=== PATIENT | female | born 1945 | race Caucasian/White ===

== ENCOUNTER 2018-08-14 22:24 | Inpatient (IN) ==
[2018-08-14] MEDS ORDERED: MoRPHine SULFATE 2 MG/ML CARP IV STA (23:21)
[2018-08-14] MEDS ORDERED: ONDANSETRON INJ 2 MG/ML 2 ML VIAL IV STA (23:21)
[2018-08-14] MEDS ORDERED: MoRPHine SULFATE 4 MG/ML 1 ML CARP\\VIAL IV STA (23:23)
[2018-08-15] MEDS ORDERED: SODIUM CHLORIDE 0.9% 500 ML IV ONE (00:05)
[2018-08-15] MEDS ORDERED: fentaNYL citrate 100 MCG/2 ML VIAL IV ONE (00:05)
[2018-08-15] MEDS ORDERED: MoRPHine SULFATE 2 MG/ML CARP IV STA (02:07)
--- NOTE | 2018-08-15 05:48 | History & Physical Report ---
Date of Service August 15, 2018 Assessment & Plan (1) Cervical radiculopathy: 73-year-old female was admitted on 15 Aug 2018 for neck pain. Cervical radiculopathy, spinal canal stenosis: Patient notes history of left- sided neck pain for roughly 1-3 weeks. Denies previous history of the same, k nown trauma, or inciting factor. She says her symptoms resolved after 5-day prednisone burst but then returned on day prior to admit. She denies overt chest pain as well as SOB. EKG was normal sinus rhythm, rate 73, with flattened T waves in lateral leads. Troponin is negative. There is some mild weakness in the ulnar distribution but sensation seems equal and intact bilaterally. - On prior ED visit, x-ray of the left shoulder was unremarkable. CT of the cervical spine showed multilevel degenerative disc disease and facet arthrosis. - In ED, patient received 1 L normal saline bolus, Zofran, and morphine followed by fentanyl which brought pain from 9/10 to 6/10. On this visit, MRI of the C- spine (overnight radiology read) noted at C4-5 there is a broad-based right paracentral disc protrusion with C5 nerve root mass-effect, moderate cord compression, and severe spinal canal stenosis. No cord signal abnormality. - Will admit for pain control. Continue morphine and zofran. Consult orthopedics for their evaluation. Ongoing medical issues: - Small bowel internal hernia: As seen on a CT scan February 2018. - She denies any ongoing medical history. Code status: Full code. Diet: NPO for now. DVT prophy: SCDs. Deferred chemical prophylaxis in case of need for surgical procedure. PT/OT: Ordered. Disbo: Admit to [facility]. (2) Cervical stenosis of spinal canal: History of Present Illness Primary Care Provider: NO PCP 73-year-old female requests evaluation for the return of her neck pain that radiates into her left arm and upper chest. -Patient says last week she began to experience some left neck and shoulder pain. She was seen in the emergency department on 26Apr for (per the notes) left shoulder pain that had persisted for 2 to 3 weeks. She had an x-ray that was unremarkable and a CT scan that showed multilevel degenerative disc disease. She was sent home on prednisone 50 mg daily for 5 days. She says over the next couple of days her pain resolved. -Patient says then yesterday (06May, day prior to admit) she redeveloped a new intense, 9/10 pain scale, left posterior neck pain radiating into her upper left arm + posterior shoulder + less so upper chest. She tried taking some Motrin and Tylenol with minimal relief, so she returns for further evaluation. - She does not recall any particular injury or inciting factor. She denies any previous history of the same. She denies any other radicular symptoms elsewhere. She says previously she has had some right sided hand numbness but that is presently resolved. She denies overt weakness, chest pain, shortness of breath, abdominal pain, or other acute concerns. --- Patient denies any significant past medical history. 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 --- Past surgical history includes prior volvulus requiring bowel resection 2003 and colostomy reversal in 2004, hysterectomy. --- Social history includes denying tobacco or alcohol use. She lives at home with her . Allergies Allergy/AdvReac Type Severity Reaction Status Date / Time No Known Allergies Allergy Unknown Verified 08/15/18 01:51 Home Medications Home Medications Medication Instructions Recorded Confirmed Type acetaminophen [Tylenol Arthritis 650 mg PO Q12H PRN 08/04/18 08/15/18 History Pain] aspirin 81 mg PO UD 08/04/18 08/15/18 History cholecalciferol (vitamin D3) 0 unit PO QAM 08/04/18 08/15/18 History [Vitamin D3] cyanocobalamin (vitamin B-12) 0 mcg PO QAM 08/04/18 08/15/18 History [Vitamin B-12] multivitamin 2 tab PO QAM 08/04/18 08/15/18 History Past Med/Surg History Medical History No significant medical problems Surgical History No pertinent past surgical history Social History Preferred Language: [place] Communication Ability: Effective Beliefs That Will Affect Care: None Current Living Situation: Spouse Feels Safe at Home: Yes Smoking Status: Never smoker 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) Hx Alcohol Use: No Hx Substance Use: No Review of Systems Review of Systems: Constitutional: Denies fevers, chills, focal weakness Eyes: Denies any visual loss or diplopia ENT: Denies any ear/nose/throat pain or difficulty speaking or swallowing Respiratory: Denies any dyspnea, cough, hemoptysis Cardiovascular: Denies any overt chest pain or feeling of edema Gastrointestinal: Denies any abdominal pain, nausea/vomiting/diarrhea Musculoskeletal: Denies any acute extremity pains, myalgias, or focal weakness Skin: Denies any known acute rashes or lesions Neuro: Left-sided neck pain radiating as described in HPI. Denies any generalized headache or difficulties with speech/swallow. Physical Exam Physical Exam: GENERAL: Awake, alert, well-appearing, in no acute distress (i.e. does not appear in acute pain). HENT: Normocephalic, atraumatic. Oropharynx unremarkable. EYES: Normal conjunctiva. Sclera non-icteric. NECK: Inspection normal. Supple and full ROM. No nuchal rigidity. No ttp over the cervical vertebrae (though does have some ttp over the approx T2-T8 midline spinous processes and paraspinal musculature). CARDIAC: +S1S2 RRR, no murmurs. RESPIRATORY: Clear to auscultation. No wheezes or rales. Normal respiratory effort. GI: +BS, soft, non-distended. No tenderness to palpation. No rebound or guarding. EXTREMITIES: No pedal edema or calf tenderness. Moving all extremities naturally and easily, including her left shoulder. There is some mild weakness on resisted ABduction of her fingers. Good bilateral senior capital markets specialist strength. NEURO: Equal sensation distally in median/ulnar/radial nerve distributions in bilateral hands. Results & Data Vital Signs (Past 12 Hours) Vital Signs Temp Pulse Pulse Resp BP BP Pulse Ox 08/15/18 04:23 66 14 118/87 98 08/15/18 02:50 94 08/15/18 02:40 96 08/15/18 02:30 97 08/15/18 02:25 69 17 117/67 98 08/15/18 02:20 98 08/15/18 02:19 99 08/15/18 02:18 117/78 99 08/15/18 00:30 67 18 94 08/15/18 00:28 68 14 110/69 96 08/15/18 00:20 67 14 94 08/15/18 00:14 72 16 08/15/18 00:07 70 15 125/82 08/14/18 23:21 98 08/14/18 22:27 36.4 C L 79 18 152/79 H 97 Laboratory Results 08/14/18 Range/Units 23:40 Troponin I < 0.015 (0-0.045) ng/ml Medications Administered Discontinued Medications Fentanyl Citrate (Fentanyl Citrate) 50 mcg IV NOW ONE Stop: 08/15/18 00:06 Last Admin: 08/15/18 00:12 Dose: 50 mcg Documented by: [id number] Sodium Chloride (Nss) 500 mls @ 999 mls/hr IV .Q31M ONE Stop: 08/15/18 00:35 Last Infusion: 08/15/18 02:05 Dose: 0 mls/hr Documented by: [id number] Admin: 08/15/18 00:12 Dose: 999 mls/hr Documented by: [id number] Morphine Sulfate (Morphine Sulfate) 2 mg IV NOW STA Stop: 08/14/18 23:22 Last Admin: 08/15/18 00:47 Dose: Not Given Documented by: [id number] Morphine Sulfate (Morphine Sulfate) 4 mg IV NOW STA Stop: 08/14/18 23:24 Last Admin: 08/15/18 00:49 Dose: Not Given Documented by: [id number] Morphine Sulfate (Morphine Sulfate) 2 mg IV NOW STA Stop: 08/15/18 02:08 Last Admin: 08/15/18 02:18 Dose: 2 mg Documented by: [id number] Ondansetron HCl (Zofran) 4 mg IV NOW STA Stop: 08/14/18 23:22 Last Admin: 08/15/18 00:12 Dose: 4 mg Documented by: [id number] Code Status & VTE Plan Code Status Full code VTE Prophylaxis Plan VTE Prophylaxis will be ordered: Yes Supervising Physician Co-Signing Physician Notes Patient seen and examined, chart reviewed, case discussed with Dr. Gonzalez and I agree with his assessment and plan as documented above. Resident Activity Tracking Resident Involvement: Resident Care Provided Care Provided: Adult Hospital Medicine
--- NOTE | 2018-08-15 06:09 | Magnetic Resonance Report ---
MR cervical spine wo con HISTORY: Pain. Neuropathy. eval for disc herniation TECHNIQUE: Multiplanar multisequence MRI of the cervical spine was performed without the use of contr ast. COMPARISON STUDY: None. FINDINGS: Moderate degenerative disc change primarily at C4-C7. Signal characteristics of the cervica l cord appear unremarkable. Possible trace amount of myelomalacia at C4-C5 level is considered. No evidence for compression deformity. C2-C3: No significant central canal or neural foraminal narrowing. C3-C4: No significant central canal or neural foraminal narrowing. C4-C5: Broad-based posterior disc herniation combine with posterior osteophytic reaction. This create s moderate impact upon the right central aspect of the anterior cervical cord. Neural foramina consid ered patent. C5-C6: Mild broad-based disc herniation. Mild impact anterior cervical cord. Minimal osteophytic narr owing left neuroforamina. C6-C7: Mild broad-based disc herniation. Contact with but no significant deformity of the cervical co rd. Moderate osteophytic narrowing of the left and to lesser extent right neural foramina. C7-T1: Moderate osteophytic narrowing left neuroforamina. Minimal narrowing right neuroforamina. No i mpact with cervical cord. IMPRESSION: 1. Significant generalized degenerative disc change C4-C7. 2. Right central posterior disc herniation C4-C5 with moderate impact anterior cervical cord. 3. Moderate broad-based disc herniation C5-C6 with mild impact anterior cervical cord. 4. Mild broad-based disc herniation C6-C7 showing no deformity cervical cord but moderate narrowing l eft and to lesser extent right neural foramina. 5. Moderate osteophytic narrowing left neuroforamina C7 T1. The above report was generated using voice recognition software. It may contain grammatical, syntax or spelling errors. Electronically signed by: Heraclio Mata M.D. 08/15/2018 6:08 AM
--- NOTE | 2018-08-15 06:12 | Emergency Department Note ---
Entered by Sher Martin acting as a scribe for Eugenia Manley DO History of Present Illness General Chief complaint: Neck Injury/Pain Stated complaint: PAIN DOWN LEFT ARM AND NECK PAIN Time Seen by Provider: 08/14/18 23:02 Source: patient History of Present Illness Onset (ago): hour(s) (this morning) Location: neck Pain Consistency: + constant Maximum Pain Intensity: 9 Quality: + other (excruciating) Relieved By: + other (moving left arm above her head) Associated symptoms: + chest pain; no shortness of breath The patient is a 73 y/o female who presents to the ED w/ CC of constant, excruciating neck pain beginning this morning. The patient states she was evaluated in the ED last week for similar symptoms. She reports she also has excruciating pain her left arm. The patient notes she was discharged and given Prednisone and told to take Motrin for the pain. She states her symptoms resolved and then returned this morning. The patient reports she does feel slightly better with her arm above her head, and it does not affect her symptoms to press her head down. She notes she also has some pain around her heart intermittently. The patient states she has it for a short time, and it does not occur too often. She reports she currently has discomfort, and this about the second or third time. The patient notes her right knee also gives out intermittently. She states she has not followed up with her PCP for any of her symptoms. The patient reports her mother three months ago and her father is still living. She denies a history of spinal surgeries, doing anything in particular to start this, shortness of breath, family history of heart trouble, having her cholesterol checked, a history of high blood pressure, and abdominal alliance party. Home Medications Home Medications Medication Instructions Recorded Confirmed Type acetaminophen [Tylenol Arthritis 650 mg PO Q12H PRN 08/04/18 08/15/18 History Pain] aspirin 81 mg PO UD 08/04/18 08/15/18 History cholecalciferol (vitamin D3) 0 unit PO QAM 08/04/18 08/15/18 History [Vitamin D3] cyanocobalamin (vitamin B-12) 0 mcg PO QAM 08/04/18 08/15/18 History [Vitamin B-12] multivitamin 2 tab PO QAM 08/04/18 08/15/18 History Allergies Allergy/AdvReac Type Severity Reaction Status Date / Time No Known Allergies Allergy Unknown Verified 08/15/18 01:51 Past Med/Surg History Medical History No significant medical problems Surgical History No pertinent past surgical history Social History Preferred Language: [place] Communication Ability: Effective Beliefs That Will Affect Care: None Current Living Situation: Spouse Feels Safe at Home: Yes Smoking Status: Never smoker 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 and A total of 10 systems reviewed and were otherwise negative Physical Exam Vital Signs Vital Signs - 24 hr 08/14/18 22:27 08/14/18 23:21 08/15/18 00:07 Temperature 36.4 C L Temperature Source Oral Sepsis Recent Fever Within 48 Hours No Sepsis Action Taken by Nursing No Action Required Pulse Rate 79 70 Pulse Rate [Apical] Pulse Rate from SpO2 Sensor Pulse Rhythm [Apical] Pulse Strength [Apical] Respiratory Rate 18 15 Respiratory Effort / Characteristics Non-Labored Spontaneous Respiratory Depth Normal Blood Pressure 152/79 H 125/82 Blood Pressure [Right Arm] Blood Pressure Mean 103 96 Blood Pressure Mean [Right Arm] Blood Pressure Position Sitting Pulse Oximetry 97 98 Oxygen Delivery Method Room Air Room Air 08/15/18 00:14 08/15/18 00:20 08/15/18 00:28 Temperature Temperature Source Sepsis Recent Fever Within 48 Hours Sepsis Action Taken by Nursing Pulse Rate 72 67 68 Pulse Rate [Apical] Pulse Rate from SpO2 Sensor 67 68 Pulse Rhythm [Apical] Pulse Strength [Apical] Respiratory Rate 16 14 14 Respiratory Effort / Characteristics Respiratory Depth Blood Pressure 110/69 Blood Pressure [Right Arm] Blood Pressure Mean 82 Blood Pressure Mean [Right Arm] Blood Pressure Position Pulse Oximetry 94 96 Oxygen Delivery Method 08/15/18 00:30 08/15/18 02:18 08/15/18 02:19 Temperature Temperature Source Sepsis Recent Fever Within 48 Hours Sepsis Action Taken by Nursing Pulse Rate 67 Pulse Rate [Apical] Pulse Rate from SpO2 Sensor 69 71 70 Pulse Rhythm [Apical] Pulse Strength [Apical] Respiratory Rate 18 Respiratory Effort / Characteristics Respiratory Depth Blood Pressure 117/78 Blood Pressure [Right Arm] Blood Pressure Mean 91 Blood Pressure Mean [Right Arm] Blood Pressure Position Pulse Oximetry 94 99 99 Oxygen Delivery Method 08/15/18 02:20 08/15/18 02:25 08/15/18 02:30 Temperature Temperature Source Sepsis Recent Fever Within 48 Hours Sepsis Action Taken by Nursing Pulse Rate Pulse Rate [Apical] 69 Pulse Rate from SpO2 Sensor 71 76 Pulse Rhythm [Apical] Regular Pulse Strength [Apical] Normal Respiratory Rate 17 Respiratory Effort / Characteristics Non-Labored Spontaneous Respiratory Depth Normal Blood Pressure Blood Pressure [Right Arm] 117/67 Blood Pressure Mean Blood Pressure Mean [Right Arm] 83 Blood Pressure Position Pulse Oximetry 98 98 97 Oxygen Delivery Method Room Air 08/15/18 02:40 08/15/18 02:50 08/15/18 04:23 Temperature Temperature Source Sepsis Recent Fever Within 48 Hours Sepsis Action Taken by Nursing Pulse Rate Pulse Rate [Apical] 66 Pulse Rate from SpO2 Sensor 68 67 Pulse Rhythm [Apical] Pulse Strength [Apical] Respiratory Rate 14 Respiratory Effort / Characteristics Respiratory Depth Blood Pressure Blood Pressure [Right Arm] 118/87 Blood Pressure Mean Blood Pressure Mean [Right Arm] 97 Blood Pressure Position Pulse Oximetry 96 94 98 Oxygen Delivery Method Room Air General: Pt frequently raises her left arm over her head for comfort. HEENT: Head - normocephalic and atraumatic Pupils are equal, round, and reactive to light. Extraocular eye muscles are intact, and sclera are anicteric. Nose - moist nasal mucosa without discharge. Mouth - moist buccal mucosa. Oropharynx is nonerythematous and there is no tonsillar exudate or edema noted. Neck: Supple; no JVD, nuchal rigidity, cervical lymphadenopathy, or auscultated bruits. Heart: Regular rate and rhythm. There is a normal S1 and S2 with no murmurs, clicks, or gallops appreciated. Lungs: Clear to auscultation bilaterally with no wheezes, rales, or rhonchi. Abdomen: Soft, completely nontender, nondistended, with good bowel sounds. There are no palpable pulsatile masses or hepatosplenomegaly. There is no guarding, rigidity, or rebound noted. Extremities: No evidence of cyanosis, clubbing, or edema. There are easily palpable peripheral pulses. Skin: warm and dry with good turgor and no rashes. Course 2311: The patient was evaluated in room B09. A complete history and physical examination were performed. Nursing notes and previous electronic medical records were reviewed. IV lock was established and labs were drawn as above. The patient was observed on a cardiac catheterization technician and pulse oximeter. A twelve-lead EKG was obtained as described above. 0005: Ordered Fentanyl Citrate 50mcg IV, Sodium Chloride 500 ml @ 999 mls/hr IV. She will go for MRI of the cervical spine. 0201: I reevaluated the patient. She is still having pain. She has just returned from MRI. 0207: Ordered Morphine Sulfate 2mg IV 0221: Nursing staff informed me the patient would like to stay. 0229: Upon reevaluation, I discussed findings and results with the patient. She verbalized agreement of the treatment plan. She continues to have pain in her neck and left arm but the left-sided chest discomfort has resolved. 0350: I spoke with Dr. Estrella of the [facility] Hospitalist Service. The patient will be evaluated for further management and care. Administered Medications Discontinued Medications Fentanyl Citrate (Fentanyl Citrate) 50 mcg IV NOW ONE Stop: 08/15/18 00:06 Last Admin: 08/15/18 00:12 Dose: 50 mcg Documented by: [id number] Sodium Chloride (Nss) 500 mls @ 999 mls/hr IV .Q31M ONE Stop: 08/15/18 00:35 Last Infusion: 08/15/18 02:05 Dose: 0 mls/hr Documented by: [id number] Admin: 08/15/18 00:12 Dose: 999 mls/hr Documented by: [id number] Morphine Sulfate (Morphine Sulfate) 2 mg IV NOW STA Stop: 08/14/18 23:22 Last Admin: 08/15/18 00:47 Dose: Not Given Documented by: [id number] Morphine Sulfate (Morphine Sulfate) 4 mg IV NOW STA Stop: 08/14/18 23:24 Last Admin: 08/15/18 00:49 Dose: Not Given Documented by: [id number] Morphine Sulfate (Morphine Sulfate) 2 mg IV NOW STA Stop: 08/15/18 02:08 Last Admin: 08/15/18 02:18 Dose: 2 mg Documented by: [id number] Ondansetron HCl (Zofran) 4 mg IV NOW STA Stop: 08/14/18 23:22 Last Admin: 08/15/18 00:12 Dose: 4 mg Documented by: [id number] Medical Decision Making Differential Diagnosis Differential diagnosis includes: herniated cervical disk, cervical radiculopathy, cervical disk degeneration, cardiac ischemia. Medical Records Attestation: I reviewed the patient's medical records. Home Medications Current Medication List: was personally reviewed by me Laboratory Data Attestation: I reviewed the patient's lab results. Lab Results 08/14/18 Range/Units 23:40 Troponin I < 0.015 (0-0.045) ng/ml Imaging Data Radiologist's Impression: Radiology results as stated below per my review and the [facility] radiologist's interpretation: MRI C SPINE : At C4-5, a broad-based right paracentral disc protrusion causes effacement of the right subarticular zone, contact and mass effect upon the descending right C5 nerve roots, moderate cord compression, and severe spinal canal stenosis. Disc osteophytes at other levels result in multilevel spinal canal stenosis. No cord signal abnormality. Radiologist: Thony Nolasco MD Study ready at 01:36 and initial results transmitted at 01:46 ECG Data Attestation: I personally reviewed and interpreted this ECG as follows: Indication: chest pain Rate (beats per minute): 73 Rhythm: normal sinus Findings: + other (T-wave flattening in the lateral leads); no PAC, no PVC and no ectopy Comparison ECG Date: from (09/2008) Change: the following changes noted Additional Comments: T-wave flattening new Blood Pressure Blood Pressure Findings: Elevated blood pressure Blood Pressure Disposition: further management by hospitalist MDM Narrative The patient is a 73 y/o female who presents to the ED w/ CC of constant, excruciating neck pain beginning this morning. The patient denies any trauma or injury. She was seen here in the emergency department for similar symptoms 1 week ago and was treated with prednisone. States that the pain came back much more severe tonight. MRI of the cervical spine was performed and showed evidence of significant disc protrusion at C5 with spinal cord compression and nerve root compression. However, the patient's findings on MRI are consistently in the right, her pain is mostly of the left upper extremity. The patient has received a couple of doses of IV analgesia but still rates her pain as a 6-7/10. I felt the patient will require further evaluation by the hospitalist service for intractable C-spine pain and then evaluation by orthospine. Impression & Plan Cervical spine pain, Cervical radiculopathy Discharge Plan Visit Data Chief Complaint: Neck Injury/Pain Stated Complaint: PAIN DOWN LEFT ARM AND NECK PAIN ED Provider: Eugenia Manley Discharge Problem: Cervical spine pain, Cervical radiculopathy Patient Disposition: Being Evaluated by Hospitalist Forms Stand Alone Forms: My [facility] Prescriptions Prescriptions: No Action cyanocobalamin (vitamin B-12) [Vitamin B-12] 1,000 mcg Tablet PO QAM RF: 0 aspirin 81 mg Tablet,Delayed Release (Dr/Ec) 81 mg PO UD RF: 0 acetaminophen [Tylenol Arthritis Pain] 650 mg Tablet Extended Release 650 mg PO Q12H PRN (Reason: Pain) RF: 0 cholecalciferol (vitamin D3) [Vitamin D3] 1,000 unit Capsule PO QAM RF: 0 multivitamin Tablet,Chewable 2 tab PO QAM RF: 0 Referrals Referrals: PCP,NO [Primary Care Provider] - The scribe's documentation has been prepared under my direction and personally reviewed by me in its entirety. I confirm that the note above accurately reflects all work, treatment, procedures, and medical decision making performed by me.
--- NOTE | 2018-08-15 07:26 | Family Medicine Progress Note ---
Date of Service August 15, 2018 Assessment & Plan (1) Cervical radiculopathy: 73-year-old female was admitted on 15 Aug 2018 for neck pain. Cervical radiculopathy, spinal canal stenosis: Patient notes history of left- sided neck pain for roughly 1-3 weeks. Denies previous history of the same, k nown trauma, or inciting factor. She says her symptoms resolved after 5-day prednisone burst but then returned on day prior to admit. She denies overt chest pain as well as SOB. EKG was normal sinus rhythm, rate 73, with flattened T waves in lateral leads. Troponin is negative. There is some mild weakness in the ulnar distribution but sensation seems equal and intact bilaterally. - On prior ED visit, x-ray of the left shoulder was unremarkable. CT of the cervical spine showed multilevel degenerative disc disease and facet arthrosis. - In ED, patient received 1 L normal saline bolus, Zofran, and morphine followed by fentanyl which brought pain from 9/10 to 6/10. On this visit, MRI of the C- spine (overnight radiology read) noted at C4-5 there is a broad-based right paracentral disc protrusion with C5 nerve root mass-effect, moderate cord compression, and severe spinal canal stenosis. No cord signal abnormality. - Will admit for pain control. Continue morphine and zofran. Consult orthopedics for their evaluation. Ongoing medical issues: - Small bowel internal hernia: As seen on a CT scan February 2018. - She denies any ongoing medical history. Code status: Full code. Diet: NPO for now. DVT prophy: SCDs. Deferred chemical prophylaxis in case of need for surgical procedure. PT/OT: Ordered. Disbo: Admit to [facility]. (2) Cervical stenosis of spinal canal: Results & Data Vital Signs (Past 12 Hours) Vital Signs Temp Pulse Pulse Resp BP BP Pulse Ox 08/15/18 06:25 64 20 121/61 96 08/15/18 04:23 66 14 118/87 98 08/15/18 02:50 94 08/15/18 02:40 96 08/15/18 02:30 97 08/15/18 02:25 69 17 117/67 98 08/15/18 02:20 98 08/15/18 02:19 99 08/15/18 02:18 117/78 99 08/15/18 00:30 67 18 94 08/15/18 00:28 68 14 110/69 96 08/15/18 00:20 67 14 94 08/15/18 00:14 72 16 08/15/18 00:07 70 15 125/82 08/14/18 23:21 98 08/14/18 22:27 36.4 C L 79 18 152/79 H 97
[2018-08-15] MEDS ORDERED: ONDANSETRON INJ 2 MG/ML 2 ML VIAL IV PRN (07:37)
[2018-08-15] MEDS ORDERED: MoRPHine SULFATE 2 MG/ML CARP IV PRN (07:37)
--- NOTE | 2018-08-15 14:31 | Orthopedic Consultation ---
Date of Consultation August 15, 2018 Assessment & Plan (1) Cervical stenosis of spinal canal: March discussion with this patient reviewing her MRI findings and clinical presentation. She does have multilevel cervical spondylosis with fairly significant disc protrusion and canal compromise at C4-5. This may very well be contributing to her symptom complex. We discussed possible treatment options including cervical epidurals versus surgical intervention. At minimum surgically she would require an anterior cervical discectomy and fusion C4-5. She is going to consider his options she is requested to be discharged today. She will follow-up with us in the office. Present on Admission?: Yes History of Present Illness Reason for Consultation: Neck and arm pain Attending Physician: Sinai Zuñiga MD History of Present Illness This is a very pleasant 73-year-old female with its had a history of intermittent quite incapacitating cervicalgia over the past month. She returns the emergency room last evening with return neck pain described as involving the mid cervical spine radiating into the left upper shoulder and upper arm. Is not extend into her fingers. 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 She is very active lady. She denies any recent trauma fall or event that may precipitated her current complaints. Allergies Allergy/AdvReac Type Severity Reaction Status Date / Time No Known Allergies Allergy Unknown Verified 08/15/18 01:51 Home Medications Home Medications Medication Instructions Recorded Confirmed Type acetaminophen [Tylenol Arthritis 650 mg PO Q12H PRN 08/04/18 08/15/18 History Pain] aspirin 81 mg PO UD 08/04/18 08/15/18 History cholecalciferol (vitamin D3) 0 unit PO QAM 08/04/18 08/15/18 History [Vitamin D3] cyanocobalamin (vitamin B-12) 0 mcg PO QAM 08/04/18 08/15/18 History [Vitamin B-12] multivitamin 2 tab PO QAM 08/04/18 08/15/18 History Patient History Medical History No significant medical problems Surgical History No pertinent past surgical history Social History Preferred Language: Maori Communication Ability: Effective 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 She has marked difficulty with cervical extensions. She is a positive Spurling's to the left. She has reasonable baggageman testing to the right with somewhat of a weak grasp on the left. Her biceps deltoids and triceps appear to be symmetric. Sensory is intact. There is no evidence of Maylin sign. Results & Data Vital Signs (Past 12 Hours) Vital Signs Temp Pulse Pulse Resp BP Pulse Ox 08/15/18 07:20 36.5 C 63 18 127/85 97 08/15/18 06:25 64 20 121/61 96 08/15/18 04:23 66 14 118/87 98 08/15/18 02:50 94 08/15/18 02:40 96 08/15/18 02:30 97
[2018-08-15 15:14] VITALS: BP 130/86; TEMP 97.5; O2SAT 99
--- NOTE | 2018-08-15 16:24 | Discharge Summary ---
Date of Service August 15, 2018 Admission HPI Per Admitting Provider 73-year-old female requests evaluation for the return of her neck pain that radiates into her left arm and upper chest. -Patient says last week she began to experience some left neck and shoulder pain. She was seen in the emergency department on 26Apr for (per the notes) left shoulder pain that had persisted for 2 to 3 weeks. She had an x-ray that was unremarkable and a CT scan that showed multilevel degenerative disc disease. She was sent home on prednisone 50 mg daily for 5 days. She says over the next couple of days her pain resolved. -Patient says then yesterday (06May, day prior to admit) she redeveloped a new intense, 9/10 pain scale, left posterior neck pain radiating into her upper left arm + posterior shoulder + less so upper chest. She tried taking some Motrin and Tylenol with minimal relief, so she returns for further evaluation. - She does not recall any particular injury or inciting factor. She denies any previous history of the same. She denies any other radicular symptoms elsewhere. She says previously she has had some right sided hand numbness but that is presently resolved. She denies overt weakness, chest pain, shortness of breath, abdominal pain, or other acute concerns. --- Patient denies any significant past medical history. 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 --- Past surgical history includes prior volvulus requiring bowel resection 2003 and colostomy reversal in 2004, hysterectomy. --- Social history includes denying tobacco or alcohol use. She lives at home with her . Principal Diagnosis cervical stenosis of spinal canal Discharge Exam Vitals noted within normal limits . GENERAL: Awake, alert to person, place, and time, nontoxic-appearing, in no distress HENT: Normocephalic, atraumatic. Mucus membranes appear moist. EYES: Normal conjunctiva. Sclera non-icteric. EOMI. NECK: Supple. Full range of motion. No JVD RESPIRATORY: Clear to auscultation. Normal work of breathing. CARDIAC: Regular rate, normal rhythm. Extremities warm and well perfused, 2+ radial pulses bilaterally; 2+ posterior tibialis pulses bilaterally. ABDOMEN: Soft, non-distended. No tenderness to palpation in all four quadrants. No rebound or guarding. No masses. Bowel sounds are normal. LOWER EXTREMITIES: Inspection of calves reveal equal size bilaterally. They are non-tender. No edema. No discoloration. NEURO: No focal gross focal motor deficits noted. Sensation in tact. CN II-XII grossly in tact. NonTTP at cervical spine and paracervical musculature. Negative spurling's. SKIN: Rash not present. No jaundice noted. Significant lesions not present. PSYCH: Appropriate mood and affect. Cooperative. Exam as done by Michell Ken MD, Marketing Research Coordinator. Discharge Data Allergies Allergy/AdvReac Type Severity Reaction Status Date / Time No Known Allergies Allergy Unknown Verified 08/15/18 01:51 Consultations 08/15/18 02:49 ED Decision to Admit Stat 08/15/18 09:29 Consult Orthopedic Surgery Routine Ordered Studies 08/15/18 00:06 MR cervical spine wo con Urgent Hospital Course (1) Cervical radiculopathy: 73-year-old female was admitted on 15 Aug 2018 for neck pain. Seen by spine orthopedics (Dr. Krishnan) and plan for outpatient further evaluation and management given MRI findings of severe spinal canal stenosis. Sent home on PO pain medication with plan for follow up as below. Discharge date: #Cervical radiculopathy, spinal canal stenosis: -Patient notes history of left-sided neck pain for roughly 1-3 weeks. Denies previous history of the same, known trauma, or inciting factor. She says her symptoms resolved after 5-day prednisone burst but then returned on day prior to admit. -Otherwise denies symptoms concerning for cardiopulmonary issues. - On prior ED visit, x-ray of the left shoulder was unremarkable. CT of the cervical spine showed multilevel degenerative disc disease and facet arthrosis. - On this visit, MRI of the C-spine (overnight radiology read) noted at C4-5 there is a broad-based right paracentral disc protrusion with C5 nerve root mass-effect, moderate cord compression, and severe spinal canal stenosis. No cord signal abnormality. - Ortho spine consulted, plan for outpatient follow up and management. Discussed possible treatment options including cervical epidurals versus surgical intervention, anterior cervical discectomy and fusion C4-5. She is going to consider these options, and has requested to be discharged today. Ongoing medical issues: - Small bowel internal hernia: As seen on a CT scan February 2018. No acute issues. - She denies any ongoing medical history. Konrad Ken MD (2) Cervical stenosis of spinal canal: Total Time Total Time Spent Total Time Spent (In Minutes): 30 Discharge Plan Discharge Items Patient Disposition: Home - Self-Care Reason For Visit: SEVERE NECK PAIN Discharge Diagnosis: Severe Neck pain -Cervical Radiculopathy Discharge Goals: Decrease discomfort Activity: As commented below Activity Comment: Activity as tolerated Non-emergency contact: Primary Care Provider Call non-emergency contact if: your symptoms worsen Follow-up/Referrals: PCP,NO [Primary Care Provider] - Diet: Regular Addtl Provider Instructions: Follow up with Dr. Krishnan - Please call his office to schedule appointment - [phone] Follow up with your family physician in the meantime I have also written a prescription for physical therapy which you can use to start therapy in any outpatient setting. For pain - use tylenol and if no help with tylenol - you can use tramadol. Tramadol can make you sleepy. Prescriptions: New tramadol 50 mg tablet 50 mg PO TID Qty: 14 RF: 0 Continued cyanocobalamin (vitamin B-12) [Vitamin B-12] 1,000 mcg Tablet PO QAM RF: 0 aspirin 81 mg Tablet,Delayed Release (Dr/Ec) 81 mg PO UD RF: 0 acetaminophen [Tylenol Arthritis Pain] 650 mg Tablet Extended Release 650 mg PO Q12H PRN (Reason: Pain) RF: 0 cholecalciferol (vitamin D3) [Vitamin D3] 1,000 unit Capsule PO QAM RF: 0 multivitamin Tablet,Chewable 2 tab PO QAM RF: 0 Stand-Alone Forms: [facility] Discharge Orders: Discharge Order (Routine); Ordered 08/15/18 Ordered By: Sinai Zuñiga Admission Data Admit Date/Time: 08/15/18 05:40 Attending Provider: Sinai Zuñiga Admit Provider: Rios Gonzalez Primary Care Provider: PCP,NO Other Providers: Johanna Estrella Gregory M Service: Surgical Services Other Interventions: Discharge Summary Assessment (RN) Last Done: 08/15/18 17:38 DC Date/Time DO NOT enter until pt leaves facility: 08/15/18 18:13 Supervising Physician Co-Signing Physician Notes Resident Physician Supervision Note: I independently interviewed and examined the patient and verified the nolan history and physical, reviewed labs and image studies, discussed the case with the resident Dr. Ken and agree with the findings and care plan. Time spent in discharge 35 min Resident Activity Tracking Resident Involvement: Resident Care Provided Care Provided: Adult Hospital Medicine
[2018-08-15 17:41] VITALS: PULSE 64
== END 2018-08-15 18:13 | disposition home or self-care (01) | DRG 552 ==
LOC: ED 22:24 → SUATTDRO 08-15 05:40 → 3W 08-15 05:40